=== PATIENT | female | born 1930 | race Caucasian/White ===

== ENCOUNTER 2016-08-16 15:17 | Inpatient (IN) ==
[2016-08-16 15:35] LABS: MANUAL DIFF NEEDED? NO
[2016-08-16] MEDS ORDERED: CARDIZEM IV ONE ×2 (15:39→17:08)
[2016-08-16 15:42] LABS: BASO% 0.3 % (0.0-0.8); EOS# 0.05 X1000 (0.0-0.7); EOS% 0.9 % (0.0-10.0); HEMATOCRIT 47.2 % (37.0-47.0); HEMOGLOBIN 15.2 g/dL (12.0-16.0); IMM GRAN# 0.02 X1000 (0.0-0.04); IMM GRAN% 0.3 % (0.0-0.5); LYMPH# 0.73 X1000 (1.2-3.4); LYMPH% 12.7 % (20.5-51.1); MCH 30.9 PG (27-31); MCHC 32.2 g/dL (33-37); MCV 95.9 FL (81-99); MONO# 0.43 X1000 (0.11-0.59); MONO% 7.5 % (1.7-9.3); NEUT% 78.3 % (42.2-75.2); PLT 183 X1000 (130-400); RBC 4.92 XMIL (4.2-5.4)
--- NOTE | 2016-08-16 15:42 | EKG Report ---
Test Performed on : 08/16/2016 3:40:16 PM Test Reason : CHEST PAIN Blood Pressure : / mmHG Vent. Rate : 108 BPM Atrial Rate : 108 BPM P-R Int : 158 ms QRS Dur : 086 ms QT Int : 352 ms P-R-T Axes : 063 -54 050 degrees QTc Int : 471 ms Sinus tachycardia. Left anterior fascicular block Voltage criteria for left ventricular hypertrophy Abnormal ECG When compared with ECG of 01-JAN-2016 00:46, No significant change was found Unconfirmed Result
[2016-08-16 16:10] LABS: INR 0.93 (0.86-1.15); PROTIME 12.8 Seconds (12.1-15.5)
[2016-08-16 16:11] LABS: PTT PL 26.6 Seconds (22.6-43.9)
[2016-08-16 16:12] LABS: AGAP 16; ALBUMIN 4.2 g/dL (3.5-5.0); ALKALINE PHOSPHATASE 354 U/L (32-104); BUN 10 mg/dL (8-22); CALCIUM 9.8 mg/dL (8.8-10.2); CHLORIDE 102 mmol/L (98-107); CK PROFILE 23 U/L (24-173); COSMO 286; GOT 45 U/L (10-30); GPT 275 U/L (10-36); MAGNESIUM 2.2 mg/dL (1.5-2.7); POTASSIUM 3.9 mmol/L (3.5-5.1); SODIUM 143 mmol/L (136-145); TCO2 25 mmol/L (25-35); TOTAL PROTEIN 7.4 g/dL (6.3-8.3)
--- NOTE | 2016-08-16 16:47 | Diag Imaging Result Doc PS360 ---
EXAM: CHEST-2 VIEWS HISTORY: CP TECHNIQUE: COMPARISON: 07/07/2015 FINDINGS: The lungs are well expanded. The heart is not enlarged. The vessels are not distended. There are no infiltrates. No pleural effusions. There is a small to moderate sized hiatal hernia. There are several calcified left hilar lymph nodes. Old left rib fractures. No free air beneath the diaphragm. IMPRESSION: 1.Hiatal hernia 2.Emphysema 3.Calcified left hilar lymph nodes Electronically signed by Ayad Jackson 08/16/2016 4:44 PM
[2016-08-16 16:56] LABS: BILIRUBIN URINE NEGATIVE (NEGATIVE); BLOOD URINE 2+ (NEGATIVE); CLARITY CLEAR (CLEAR); COLOR YELLOW; GLUCOSE URINE NEGATIVE (NEGATIVE); LEUKOCYTES URINE TRACE (NEGATIVE); NITRITE URINE NEGATIVE (NEGATIVE); PH URINE 6.5; PROTEIN URINE NEGATIVE (NEGATIVE); URINE SOURCE CLEAN CATCH; UROBILINOGEN URINE NORMAL
[2016-08-16 16:58] LABS: URINE CULTURE PL NEEDED? YES; URINE EPITHELIAL CELLS <10 /HPF (<10); URINE RBC <10 /HPF (<10); URINE WBC <10 /HPF (<10)
[2016-08-16] MEDS ORDERED: CARDIZEM ONE (17:09)
--- NOTE | 2016-08-16 17:39 | EKG Report ---
Test Performed on : 08/16/2016 5:36:11 PM Test Reason : chest pain second set Blood Pressure : / mmHG Vent. Rate : 102 BPM Atrial Rate : 156 BPM P-R Int : 168 ms QRS Dur : 090 ms QT Int : 374 ms P-R-T Axes : 081 -49 013 degrees QTc Int : 487 ms Sinus tachycardia. with frequent premature ventricular complexes. Pulmonary disease pattern Left anterior fascicular block Voltage criteria for left ventricular hypertrophy Abnormal ECG When compared with ECG of 16-AUG-2016 15:40, (Unconfirmed) premature ventricular complexes. are now present T wave inversion now evident in Inferior leads Unconfirmed Result
[2016-08-16] MEDS ORDERED: LASIX IV ONE (18:25)
[2016-08-16] MEDS ORDERED: LASIX ONE (18:37)
[2016-08-16] MEDS ORDERED: ZOFRAN IV PRN (19:11)
[2016-08-16] MEDS ORDERED: NS 1,000 ML IV ONE (19:11)
[2016-08-16] MEDS ORDERED: MORPHINE IV PRN (19:11)
[2016-08-16] MEDS: LASIX IV SCH (21:35)
[2016-08-16] MEDS ORDERED: ADVAIR 250/50 DISKUS INH PRN (23:11)
[2016-08-16] MEDS ORDERED: DESYREL PO PRN (23:17)
[2016-08-17] MEDS: LYRICA PO SCH ×3 (00:25→20:50)
[2016-08-17] MEDS: SYNTHROID PO SCH (06:42)
[2016-08-17] MEDS ORDERED: NORCO-7.5 PO SCH (09:00)
[2016-08-17] MEDS: LASIX IV SCH (09:00)
[2016-08-17] MEDS ORDERED: PROTONIX PO SCH (09:00)
[2016-08-17] MEDS ORDERED: PATIENT'S OWN MED PRN (09:00)
[2016-08-17] MEDS: COLACE PO SCH ×2 (09:02→20:52)
[2016-08-17] MEDS: ZYLOPRIM PO SCH (09:02)
[2016-08-17] MEDS: CYMBALTA PO SCH (09:02)
[2016-08-17] MEDS: OCUVITE LUTEIN & ZEAXANTHIN PO SCH (09:03)
[2016-08-17] MEDS: VITAMIN B-12 PO SCH (09:03)
[2016-08-17] MEDS: FISH OIL CONCENTRATE PO SCH (09:04)
--- NOTE | 2016-08-17 12:00 | GRADED EXERCISE REPORT ---
DATE: 08/17/2016 INDICATION: Chest pain. EKG PORTION OF LEXISCAN: Preprocedure EKG resting heart rate was 122 and irregular, 154/71 blood pressure. EKG resting showed PVCs, specific ST changes. It was a sinus tachycardia, though. After infusion of Lexiscan, she developed some ectopy. It looked like a pattern of bigeminy or frequent PVC's, sometimes with bigeminy. Heart rate at the fastest was in the 130s. Peak blood pressure was 149/87 with a peak heart rate of 166. Incidentally 122% of predicted, but the patient developed nausea during the procedure and chest pain. She said worse than her chest pain she had the night before. She was given 4 mg of Zofran. We monitored her for about 7 to 8 minutes, but she was still having a burning sensation. So, she was given some aminophylline to help reverse the affects of the Lexiscan. I did not appreciate any significant ST changes on the EKG portion; however, she did develop a significant ventricular bigeminy and frequent PVCs, but she had been doing that prior to the study. The study was felt to be clinically positive, but electrically negative, although she did have frequent ectopy and even bigeminy. Myocardial perfusion imaging reported separately. cc: Clark Garrett MD
[2016-08-17] MEDS: LOPRESSOR PO SCH ×2 (14:50→20:50)
[2016-08-17] MEDS ORDERED: LEXISCAN ONE (16:09)
[2016-08-17] MEDS ORDERED: AMINOPHYLLINE ONE (16:09)
[2016-08-17] MEDS ORDERED: ZOFRAN ONE (16:09)
--- NOTE | 2016-08-17 16:31 | HISTORY AND PHYSICAL ---
CHIEF COMPLAINT: Chest pain. HISTORY OF PRESENT ILLNESS: This is an 86-year-old female who presented to the emergency room complaining of chest pain that started earlier in the day. She states that the feeling started feeling like her heart was beating harder than normal. She developed a pressure type pain. It was precordial shortly after this. She does state that she is coming off of morphine and [place] as she has a clonidine pain pump. She denies any other symptoms or symptoms of withdrawal. She states she has never had this sensation before. Troponins were negative. EKG revealed a sinus tach at a rate of 108. With repeat EKG sinus tachycardia with PVCs at a rate of 102. She was given Cardizem 30 mg IV, Lasix 20 and admitted for further evaluation and treatment. PAST MEDICAL HISTORY: COPD, sleep apnea, chronic back pain, hypothyroidism, gastroesophageal reflux disease, atrial fibrillation. PAST SURGICAL HISTORY: Pain pump, cholecystectomy, hysterectomy and right total knee. SOCIAL HISTORY: She lives with her . She denies alcohol, tobacco, or illicit drug use. ALLERGIES: Are multiple. Please see the computer for list of her allergies. HOME MEDICATIONS: Levothyroxine 112 mcg daily. Ocuvite 1 daily. Protonix 40 mg daily. Cymbalta 60 mg daily. Colace 100 b.i.d. Allopurinol 300 q.a.m. Clonidine infusion per pump. Vitamin B12 1000 sublingual every a.m. Estrace 1 g every other day. Advair 250/50 daily p.r.n. [place] 7.5 daily. Lyrica 75 mg b.i.d. Fish oil daily. REVIEW OF SYSTEMS: A 14 point review of systems discussed with patient with pertinent positives being chronic back pain as well as those stated in the HPI. She denied any dizziness, syncope, shortness of breath, cough, fever, chills, any hematuria, dysuria, frequency or urgency. PHYSICAL EXAM: This is an 86-year-old female who is lying in the bed, in no distress. VITAL SIGNS: Blood pressure is 127/52 with a heart rate of 59, respirations are 16, temperature is 98.1 degrees with oxygen saturations of 96-98% on room air. CARDIOVASCULAR: Regular rate and rhythm. S1 and S2 appreciated. PULMONARY: Breath sounds are clear with no increased work of breathing noted. GASTROINTESTINAL: Abdomen is soft, nontender, nondistended. Bowel sounds in all 4 quadrants. EXTREMITIES: No clubbing, cyanosis, or edema. Calves are nontender. Pulses are palpable x4. NEUROLOGIC: She is alert and oriented x3. DIAGNOSTICS: WBC is 5.7 with hemoglobin 15.2, hematocrit 47.2, and platelets of 183,000. Sodium is 143, potassium 3.9, BUN 10, creatinine 0.7 with a glucose of 137. Troponins are negative on multiple occasions. TSH is 7.42. Urine culture is pending. ASSESSMENT AND PLAN: 1. Chest pain. The patient has remained NPO. She will have a nuclear stress test today. Further management will be per the results of the scan. 2. Hypertension. We will identify her home medications and continue. 3. Hypothyroidism. Her TSH is elevated. the pt states she has not been taking medication as prescribed. will give home dose and monitor. 4. Gastroesophageal reflux disease. 5. History of atrial fibrillation, aware. 6. COPD. We will identify her home medications and continue as appropriate. Further treatments pending hospital course. Dictated by SP Abraham for Clark Garrett MD cc: SP Abraham MD pt examined, agree with above, stress test today [facility] MTD[facility]
[2016-08-17] MEDS: TEARISOL OPH SOLUTION BOTH EYES SCH ×2 (17:33→21:30)
[2016-08-17] MEDS: NORCO-7.5 PO SCH (20:51)
[2016-08-18] MEDS: LOPRESSOR PO SCH ×2 (01:51→07:58)
[2016-08-18] MEDS: SYNTHROID PO SCH (06:20)
[2016-08-18] MEDS ORDERED: PROTONIX PO SCH (07:00)
[2016-08-18 07:04] LABS: HEMATOCRIT 48.4 % (37.0-47.0); HEMOGLOBIN 15.3 g/dL (12.0-16.0); MCH 30.3 PG (27-31); MCHC 31.6 g/dL (33-37); MCV 95.8 FL (81-99); MPV 12.1 FL (7.4-10.4); RBC 5.05 XMIL (4.2-5.4)
[2016-08-18 07:18] VITALS: BP 124/55
[2016-08-18 07:33] LABS: AGAP 15; BUN 15 mg/dL (8-22); CHLORIDE 102 mmol/L (98-107); COSMO 283; MAGNESIUM 2.4 mg/dL (1.5-2.7); POTASSIUM 4.1 mmol/L (3.5-5.1); SODIUM 142 mmol/L (136-145); TCO2 25 mmol/L (25-35)
[2016-08-18] MEDS: COLACE PO SCH (07:59)
[2016-08-18] MEDS: NORCO-7.5 PO SCH (08:00)
[2016-08-18] MEDS: OCUVITE LUTEIN & ZEAXANTHIN PO SCH (08:01)
[2016-08-18] MEDS: LYRICA PO SCH (08:01)
[2016-08-18] MEDS: VITAMIN B-12 PO SCH (08:01)
[2016-08-18] MEDS: FISH OIL CONCENTRATE PO SCH (08:01)
[2016-08-18] MEDS: CYMBALTA PO SCH (08:01)
[2016-08-18] MEDS: ZYLOPRIM PO SCH (08:01)
[2016-08-18] MEDS: TEARISOL OPH SOLUTION BOTH EYES SCH ×2 (08:25→13:10)
[2016-08-18] MEDS ORDERED: ESTRACE PO SCH (09:00)
--- NOTE | 2016-08-18 10:15 | Diag Imaging Result Document ---
PROCEDURE NAME: MYOCARDIAL PERF SCAN, STR/REST - 08/17/2016 DATE OF STUDY: 08/17/2016. INDICATION FOR THE PROCEDURE: Congestive heart failure. PROCEDURES PERFORMED: 1. Lexiscan stress. 2. Stress/rest myocardial perfusion imaging. PROCEDURE IN DETAIL: Ms. Smith was brought to the nuclear laboratory in a fasting state. She initially had a resting study with injection of 10.7 mCi of technetium-99m sestamibi with the usual imaging protocol utilized. She subsequently had a Lexiscan stress. At peak stress, was injected with 29.7 mCi of technetium-99m sestamibi with the usual imaging protocol utilized. FINDINGS: 1. Lexiscan stress results dictated separately. 2. There does appear to be evidence of increased tracer uptake on resident stress images located in the left forearm. This is likely contamination from tracer. 3. TID ratio is normal at 0.87. 4. Perfusion imaging demonstrates a very small size, mild intensity, fixed defect at the apex. This is predominantly suggestive of apical thinning artifact. Wall motion appears to be normal. 5. Normal ejection fraction of 59%. End-diastolic volume 35, end-systolic volume of 14, and normal wall motion. cc: MD Clark Garcia MD
--- NOTE | 2016-08-18 10:56 | CONSULTATION ---
DATE OF CONSULTATION: 08/18/2016 REASON FOR CONSULTATION: Palpitations and chest discomfort. A 86-year-old lady, came to the emergency room with complaints of having palpitations, which has been going on for some time and she describes them as thumping. Whenever that happens, she has some chest discomfort. She has chronic pain. Has scoliosis and is undergoing treatment with a clonidine pump. Most of her chest pain were associated with the palpitations. There was no radiation to the back or down the arms. When she came in, she was noted to have multiple PACs. Prior to this, no significant cardiac disease. There is no dizziness. There is no syncope. PAST MEDICAL HISTORY: COPD, sleep apnea, chronic back pain, scoliosis, hypothyroidism, gastroesophageal reflux disease. Distant history of atrial fibrillation or palpitations. PAST SURGICAL HISTORY: Pain pump placement, cholecystectomy, hysterectomy, right total knee. SOCIAL HISTORY: She lives with her . No alcohol or tobacco abuse. ALLERGIES: Multiple allergies, as listed in the computer. HOME MEDICATIONS: Levothyroxine 112, Ocuvite, Protonix, Cymbalta, Colace, allopurinol, clonidine infusion, B12, Estrace, Advair, and Lyrica. REVIEW OF SYSTEMS: GI System: There is no nausea, vomiting, or diarrhea. Central nervous system: No focal weakness to suggest a CVA or TIA. Genitourinary: There is no dysuria or hematuria. However, she was recently treated with antibiotics for urinary tract infection. PHYSICAL EXAMINATION: Vital Signs: Blood pressure was 127/52. Cardiovascular System: Normal jugular venous pressure. There no thyromegaly. No carotid bruit. First and second heart sounds were heard. Respiratory System: Normal air entry. There is no crepitations or rhonchi. Abdomen: Soft, nontender. There was no guarding or rigidity. Bowel sounds were heard. Central nervous system: Alert, was moving all 4 extremities. Detailed central nervous system examination not performed. Chest x-ray revealed hiatal hernia, emphysema; otherwise, no evidence of heart failure. LABORATORY EXAMINATION: Cardiac enzymes were negative. ProBNP was elevated. She had abnormal liver function tests. Magnesium and potassium were normal. Total bilirubin 0.7, AST 45, ALT 275, alkaline phosphatase 354. ASSESSMENT AND PLAN: Ms. Farheen Smith is an 86-year-old, lady, who noted palpitations associated with the palpitations. She had chest discomfort. At time of my examination, there was no chest pain. Cardiac enzymes were negative. Cardiolite stress test did not reveal any evidence of ischemia. Ejection fraction by gated SPECT was 55%. She had an echocardiogram done, which will have it read today. From a cardiac standpoint, would manage her medically. She has multiple other problems including chronic pain. Her telemetry revealed PACs. Electrolytes are normal. She was recently treated with urinary tract infection. Would recommend follow up for that. Continue her medications for hypothyroidism and depression, which she has had. In addition, she has hiatal hernia, which could be the reason for her symptoms. Thank you for the consult. We will follow in the hospital. cc: MD Clark Pérez MD
--- NOTE | 2016-08-18 18:50 | ECHO REPORT ---
ORDER DATE: 08/18/2016 INTERPRETING PHYSICIAN: Dr. Woodson REQUESTING PHYSICIAN: CLINICAL INDICATIONS: This is an 86-year-old female with chest pain, tachycardia, arrhythmia. M-MODE MEASUREMENTS: Right ventricle: 2.3 cm. Left ventricle end diastole: 3.5 cm. Left ventricle end systole: 2.9 cm. Posterior wall: 1.3 cm. Interventricular septum: 1.3 cm. Left atrium: 2.8 cm. Aortic root: 3.5 cm. SUMMARY OF 2-DIMENSIONAL IMAGING: The left ventricular function is normal. Ejection fraction 58%. The chamber is not dilated. Mild degree of concentric LVH. The right ventricle is normal. The aortic valve looks normal. Color flow mapping unremarkable. The mitral valve shows a mild degree of regurgitation. Pulse wave Doppler of mitral inflow shows reversal of the E and the A wave. The ratio is 0.38. Tissue Doppler of septal and lateral mitral annulus is decreased, averaging 3.5 cm per second. That indicates impaired left ventricular relaxation. Pulmonary venous flow has normal pattern. The tricuspid valve shows a mild degree of regurgitation. The inferior vena cava is at the upper limits of normal. Pulmonary pressure estimated to be in the range of 36-41 mmHg. The pulmonic valve looks normal. Color flow mapping unremarkable. There is no pericardial effusion, masses or thrombus. The atrial do not appear to be dilated. IMPRESSION: In summary, this study shows: 1. Normal left ventricular systolic function. Ejection fraction 58% with mild degree of concentric LVH. 2. Borderline pulmonary hypertension in the range of 36-41 mmHg. 3. Impaired left ventricular relaxation. 4. No evidence of any significant valvular abnormality. Clinical correlation recommended. cc: MD Clark Medina MD
--- NOTE | 2016-08-18 20:19 | DISCHARGE SUMMARY ---
ADMISSION DATE: 08/17/2016 DISCHARGE DATE: 08/18/2016 DIAGNOSES: 1. Chest pain 2. Hypertension. 3. Hypothyroid. 4. Gastroesophageal reflux disease. 5. History of atrial fibrillation. 6. Chronic obstructive pulmonary disease. 7. Chronic back pain. DIAGNOSTICS: 1. 08/16/2016: Chest x-ray revealed hiatal hernia, emphysema. 2. Lexiscan myocardial perfusion imaging revealed ejection fraction of 59% with normal wall motion, with a very small mild intensity fixed defect at the apex, predominantly suggestive of apical thinning artifact. Wall motion is normal. Gated nuclear stress part was clinically positive with the patient having nausea and chest pain. She did have frequent bigeminy and frequent PVCs during the stress portion of the test. This test was electrically negative. 3. Consultation: Dr. Ernst in Cardiology. HOSPITAL COURSE: Ms. Smith presented to the emergency room complaining of chest pain that she described as a pressure type pain being a 4-5/10 at its worst and 0 at its least. She complained of palpitations stating that her heart felt like it was beating harder than normal and she described it as a thumping sensation. Chest discomfort did accompany this thumping sensation. She does have a history of chronic back pain for which she is on a clonidine pump as well as p.r.n. medications. We did continue these. As stated above, she did have a negative Lexiscan. Cardiac enzymes were negative on multiple occasions. She had no further chest pain after leaving the emergency room. She had a prior urinary tract infection on arrival to the emergency room. Yesterday was her last day of p.o. antibiotics. She denies any voiding symptoms. In fact she had a urine culture that revealed no growth. DISCHARGE PHYSICAL EXAMINATION: Cardiovascular: Regular rate and rhythm. S1, S2 appreciated. Pulmonary: Breath sounds are clear. No increased work of breathing noted. Gastrointestinal: Abdomen is soft, nontender, nondistended. Bowel sounds in all 4 quadrants. Back: No CVAT. No spine tenderness. Musculoskeletal: Good range of motion of joints. Extremities: No clubbing, cyanosis, or edema. Pulses are palpable x4. Calves are nontender. Neurologic: She is alert and oriented. DISCHARGE VITAL SIGNS: Blood pressure is 124/55, heart rate 77, respirations 18, temperature 98.4 degrees with room air saturations 98%. DISCHARGE ACTIVITY: As tolerated. DISCHARGE DIET: Healthy heart. DISCHARGE MEDICATIONS: 1. Synthroid 112 mcg daily. 2. Ocuvite 1 daily. 3. Protonix 40 mg daily. 4. Cymbalta 60 mg daily. 5. Colace 100 mg b.i.d. 6. Allopurinol 300 q. a.m. 7. Clonidine infusion per pump. 8. Vitamin B12, 1000 mcg sublingual every morning. 9. Estrace 1 g every other day. 10. Advair 250/50, 1 inhalation daily. 11. [place] 7.5/325, 1-1/2 every morning. 12. Lyrica 75 b.i.d. 13. Toprol-XL 25 mg daily. FOLLOWUP: 1. She needs to follow up with Dr. Ernst in Cardiology in the next 2-4 weeks and her primary care physician Dr. Fraga in the next 1-2 weeks. 2. She has been instructed to call to be seen sooner if she has any recurrence of chest pain, shortness of breath, palpitations or any questions or concerns that she may have. CONDITION AT DISCHARGE: She is being discharged home in stable condition with family members. TIME SPENT: This is a greater than 30 minute discharge from 12:00 to 12:35. Dictated by SP Abraham for Clark Garrett MD cc: SP Abraham MD
--- NOTE | 2016-09-01 17:14 | PROVIDER DOCUMENTATION ---
This chart was entered by Allan Barajas Scribe, acting as scribe for Brando Armenta MD. HPI-Chest Pain <GauriDhruv - Last Filed: 08/16/16 19:18> - General Source: patient, family, EMS - History of Present Illness-CP Location: reports: central Chest Pain Radiation: reports: no radiation Quality of Pain: reports: aching Severity in ED: mild Onset/Duration: 24 hours ago Timing: still present Similar Symptoms Previously?: No <Brando Armenta I - Last Filed: 09/01/16 17:14> - General Chief Complaint: Chest Pain Stated Complaint: chest pain Time Seen by Provider: 08/16/16 15:33 Allergies/Adverse Reactions: Patient Allergies Allergy/AdvReac Type Severity Reaction Status Date / Time albuterol Allergy Severe SHORTNESS Verified 08/16/16 15:42 OF BREATH azithromycin [From Zithromax] Allergy Severe ANAPHYLAXIS Verified 08/16/16 15:42 butorphanol tartrate * Allergy Severe UNRESPONSIV Verified 08/16/16 15:42 [From Stadol] E hyoscyamine sulfate * Allergy Severe ANAPHYLAXIS Verified 08/16/16 15:42 [From Levsin] meloxicam [From Mobic] Allergy Severe SWELLING Verified 08/16/16 15:42 AND BURNING TO MOUTH AND THROAT mirtazapine [From Remeron] Allergy Severe ITCHING Verified 08/16/16 15:42 AND BURNING TO BUE AND BLE ondansetron HCl * Allergy Severe DIFFICULTY Verified 08/16/16 15:42 [From Zofran (as BREATHING hydrochloride)] AND CONSTIPATION soap [From Betadine] Allergy Severe WEEPING Verified 08/16/16 15:42 BLISTERS sulfamethoxazole Allergy Severe ANAPHYLAXIS Verified 08/16/16 15:42 [From Bactrim] tramadol HCl * [From Ultram] Allergy Severe DIFFICULTY Verified 08/16/16 15:42 BREATHING trimethoprim [From Bactrim] Allergy Severe ANAPHYLAXIS Verified 08/16/16 15:42 vitamin A [From Retinol] Allergy Severe HIVES Verified 08/16/16 15:42 econazole Allergy Intermediate RASH THAT Verified 08/16/16 15:42 PEELS OFF SKIN Penicillins Allergy Intermediate HIVES Verified 08/16/16 15:42 soap * [From Betadine] Allergy Intermediate Blisters Unverified 08/16/16 15:42 aloe polysaccharides no.1 Allergy Mild RASH Verified 08/16/16 15:42 [From Aloquin] dirithromycin [From Dynabac] Allergy Mild RASH, Verified 08/16/16 15:42 SWOLLEN THROAT iodoquinol [From Aloquin] Allergy Mild RASH Verified 08/16/16 15:42 venlafaxine HCl * Allergy Mild RASH Verified 08/16/16 15:42 [From Effexor] tapentadol HCl * Allergy Unknown HEADACHE Verified 08/16/16 15:42 [From Nucynta] amoxicillin [Amoxicillin] Allergy DIARRHEA Verified 08/16/16 15:42 amoxicillin trihydrate * Allergy DIARRHEA Verified 08/16/16 15:24 [From Augmentin] aripiprazole [From Abilify] Allergy Unknown Verified 08/16/16 15:42 celecoxib [From Celebrex] Allergy SWELLING Verified 08/16/16 15:42 chlorpheniramine Allergy nervous Verified 08/16/16 15:42 [From Comhist] chlorpheniramine maleate * Allergy nervous Verified 08/16/16 15:24 [From Comhist] dexlansoprazole Allergy ABDOMINAL Verified 08/16/16 15:42 [From Dexilant] PAIN naproxen sodium * Allergy DIARRHEA Verified 08/16/16 15:42 [From Aleve] oxybutynin chloride * Allergy NAUSEA Verified 08/16/16 15:42 [From Ditropan] phenylephrine HCl * Allergy nervous Verified 08/16/16 15:42 [From Comhist] phenyltoloxamine citrate * Allergy nervous Verified 08/16/16 15:42 [From Comhist] polyethylene glycol Allergy NAUSEA Verified 08/16/16 15:24 [From Colyte] polyethylene glycol 3350 * Allergy NAUSEA Verified 08/16/16 15:42 [From Colyte] potassium chloride * Allergy NAUSEA Verified 08/16/16 15:42 [From Colyte] potassium clavulanate * Allergy DIARRHEA Verified 08/16/16 15:42 [From Augmentin] rabeprazole sodium * Allergy NAUSEA Verified 08/16/16 15:42 [From Aciphex] sodium [From Colyte] Allergy NAUSEA Verified 08/16/16 15:24 sodium bicarbonate * Allergy NAUSEA Verified 08/16/16 15:42 [From Colyte] sodium chloride [From Colyte] Allergy NAUSEA Verified 08/16/16 15:42 sodium sulfate * Allergy NAUSEA Verified 08/16/16 15:42 [From Colyte] sodium sulfate anhydrous * Allergy NAUSEA Verified 08/16/16 15:42 [From Colyte] alprazolam [From Xanax] AdvReac Severe SORE Verified 08/16/16 15:42 TONGUE WITH ULCERATIONS Antihistamines - Piperidine AdvReac Severe AGITATION, Verified 08/16/16 15:42 INSOMNIA benzonatate AdvReac Severe UNABLE TO Verified 08/16/16 15:42 [From Emeterio Gold] WALK, "FEELS LIKE IM DRUNK" brompheniramine maleate * AdvReac Severe DIARRHEA Verified 08/16/16 15:42 [From Lodrane D] brompheniramine tannate * AdvReac Severe DIARRHEA Verified 08/16/16 15:42 [From Lodrane D] bupropion HCl * AdvReac Severe NAUSEA AND Verified 08/16/16 15:42 [From Wellbutrin] DIARRHEA cefaclor [From Ceclor] AdvReac Severe RED RAW Verified 08/16/16 15:42 TONGUE cefuroxime axetil * AdvReac Severe DIARRHEA Verified 08/16/16 15:42 [From Ceftin] chlordiazepoxide AdvReac Severe ANXIETY Verified 08/16/16 15:42 [From Librax (with clidinium)] chlorpromazine HCl * AdvReac Severe DECREASED Verified 08/16/16 15:42 [From Thorazine] LOC citalopram hydrobromide * AdvReac Severe NAUSEA AND Verified 08/16/16 15:42 [From Celexa] DEPRESSION clarithromycin AdvReac Severe RICHARDS, Verified 08/16/16 15:42 DIARRHEA, SINUS INFECTION clidinium bromide * AdvReac Severe ANXIETY Verified 08/16/16 15:42 [From Librax (with clidinium)] clorazepate dipotassium AdvReac Severe GERD Verified 08/16/16 15:42 [From Tranxene T-Tab] codeine phosphate * AdvReac Severe ABD PAIN Verified 08/16/16 15:42 [From Tylenol-Codeine #3] AND BLOATING divalproex sodium AdvReac Severe DIARRHEA Verified 08/16/16 15:42 [From Depakote] doxepin HCl * [From Sinequan] AdvReac Severe DIARRHEA Verified 08/16/16 15:42 doxycycline calcium * AdvReac Severe NAUSEA Verified 08/16/16 15:42 [From Vibramycin] doxycycline hyclate * AdvReac Severe NAUSEA Verified 08/16/16 15:42 [From Vibramycin] doxycycline monohydrate * AdvReac Severe NAUSEA Verified 08/16/16 15:42 [From Vibramycin] duloxetine HCl * AdvReac Severe WEAKNESS Verified 08/16/16 15:42 [From Cymbalta] erythromycin base AdvReac Severe DIARRHEA Verified 08/16/16 15:42 [From E-Mycin] fentanyl [From Duragesic] AdvReac Severe ANXIETY, Verified 08/16/16 15:42 CHILLS, DEPRESSION , BRADYCARDIA fluoxetine HCl * AdvReac Severe ESOPHAGEAL Verified 08/16/16 15:42 [From Prozac] IRRITATION fluphenazine enanthate * AdvReac Severe ANXIETY Verified 08/16/16 15:42 [From Prolixin] fluphenazine HCl * AdvReac Severe ANXIETY Verified 08/16/16 15:42 [From Prolixin] hydrocodone bitartrate * AdvReac Severe BURNING Verified 08/16/16 15:42 [From Zydone] PAIN TO TONGUE hydroxyzine HCl * AdvReac Severe ABD PAIN Verified 08/16/16 15:42 [From Vistaril] AND DIARRHEA hydroxyzine pamoate * AdvReac Severe ABD PAIN Verified 08/16/16 15:42 [From Vistaril] AND DIARRHEA ibuprofen [From Motrin] AdvReac Severe GERD Verified 08/16/16 15:42 imipramine HCl * AdvReac Severe NAUSEA Verified 08/16/16 15:42 [From Tofranil] indomethacin [From Indocin] AdvReac Severe NAUSEA Verified 08/16/16 15:42 indomethacin sodium * AdvReac Severe NAUSEA Verified 08/16/16 15:42 [From Indocin] lamotrigine [From Lamictal] AdvReac Severe esophageal Verified 08/16/16 15:42 irritation lansoprazole [From Prevacid] AdvReac Severe BREAST PAIN Verified 08/16/16 15:42 levomefolate calcium * AdvReac Severe GERD Verified 08/16/16 15:42 [From Metanx] lithium AdvReac Severe DIARRHEA Verified 08/16/16 15:42 lithium carbonate * AdvReac Severe DIARRHEA Verified 08/16/16 15:42 [From Eskalith] magnesium citrate AdvReac Severe IRRITATES Verified 08/16/16 15:42 PUD mecobalamin [From Metanx] AdvReac Severe GERD Verified 08/16/16 15:42 methadone AdvReac Severe SUICIDAL Verified 08/16/16 15:42 IDEATIONS milnacipran HCl * AdvReac Severe CONFUSION Verified 08/16/16 15:42 [From Savella] AND DIZZINESS montelukast sodium * AdvReac Severe NAUSEA Verified 08/16/16 15:42 [From Singulair] morphine sulfate * AdvReac Severe MOUTH Verified 08/16/16 15:42 [From MS Contin] ULCERS nabumetone [From Relafen] AdvReac Severe ABD PAIN, Verified 08/16/16 15:42 PUD nalidixic acid [From NegGram] AdvReac Severe NAUSEA, Verified 08/16/16 15:42 WEAKNESS, CONFUSION naloxone HCl * [From Narcan] AdvReac Severe UNRESPONSIV Verified 08/16/16 15:42 ENESS naproxen [From Naprosyn] AdvReac Severe BLISTERS, Verified 08/16/16 15:42 DIARRHEA, BLOATING nefazodone HCl * AdvReac Severe DIARRHEA Verified 08/16/16 15:42 [From Serzone] omeprazole [From Prilosec] AdvReac Severe WEAKNESS Verified 08/16/16 15:42 omeprazole magnesium * AdvReac Severe WEAKNESS Verified 08/16/16 15:42 [From Prilosec] paroxetine HCl * [From Paxil] AdvReac Severe ANXIETY Verified 08/16/16 15:42 pentazocine lactate * AdvReac Severe TACHYCARDIA, Verified 08/16/16 15:42 [From Talwin] HYPERVENTILATION piroxicam [From Feldene] AdvReac Severe ABD PAIN Verified 08/16/16 15:42 promethazine HCl * AdvReac Severe DIARRHEA Verified 08/16/16 15:42 [From Phenergan] propoxyphene AdvReac Severe INSOMNIA, Verified 08/16/16 15:42 DIFFICULTY SWALLOWING propranolol HCl * AdvReac Severe HYPOTENSION Verified 08/16/16 15:42 [From Inderal LA] pseudoephedrine HCl * AdvReac Severe DIARRHEA Verified 08/16/16 15:42 [From Lodrane D] pseudoephedrine tannate * AdvReac Severe DIARRHEA Verified 08/16/16 15:42 [From Lodrane D] pyridoxal phosphate * AdvReac Severe GERD Verified 08/16/16 15:42 [From Metanx] rimantadine HCl * AdvReac Severe NAUSEA Verified 08/16/16 15:42 [From Flumadine] rofecoxib [From Vioxx] AdvReac Severe DIARRHEA Verified 08/16/16 15:42 sertraline HCl * AdvReac Severe N/V/D Verified 08/16/16 15:42 [From Zoloft] sodium phosphate,dibasic * AdvReac Severe CONNER TO Verified 08/16/16 15:42 [From Fleet Enema] SKIN AROUND ANUS sodium phosphate,monobasic * AdvReac Severe CONNER TO Verified 08/16/16 15:42 [From Fleet Enema] SKIN AROUND ANUS tegaserod hydrogen maleate * AdvReac Severe DIARRHEA Verified 08/16/16 15:42 [From Zelnorm] tetracycline AdvReac Severe DIARRHEA Verified 08/16/16 15:42 tizanidine HCl * AdvReac Severe EYE Verified 08/16/16 15:42 [From Zanaflex] IRRITATION, DIFFICULTY AMBULATING trimethobenzamide HCl * AdvReac Severe MUSCLE Verified 08/16/16 15:42 [From Tigan] TWITCHING valdecoxib [From Bextra] AdvReac Severe AGITATION Verified 08/16/16 15:42 vitamin E (d-alpha AdvReac Severe DIARRHEA Verified 08/16/16 15:42 tocopherol) [vitamin E] adhesive tape AdvReac Intermediate RASH Verified 08/16/16 15:42 benztropine mesylate * AdvReac Intermediate ANXIETY Verified 08/16/16 15:42 [From Cogentin] glucose oxidase * AdvReac Intermediate MOUTH PEELS Verified 08/16/16 15:42 [From Biotene Dry Mouth] lactoperoxidase * AdvReac Intermediate MOUTH PEELS Verified 08/16/16 15:42 [From Biotene Dry Mouth] methylprednisolone AdvReac Intermediate INSOMNIA Verified 08/16/16 15:42 potassium thiocyanate * AdvReac Intermediate MOUTH PEELS Verified 08/16/16 15:42 [From Biotene Dry Mouth] povidone-iodine AdvReac Intermediate Blisters Verified 08/16/16 15:42 [From Betadine] cephalexin monohydrate * AdvReac Mild VOMITING Verified 08/16/16 15:42 [From Keflex] chlordiazepoxide HCl * AdvReac Mild NAUSEA Verified 08/16/16 15:42 [From Librium] diclofenac sodium * AdvReac Mild CONSTIPATIO Verified 08/16/16 15:42 [From Arthrotec] N misoprostol [From Arthrotec] AdvReac Mild CONSTIPATIO Verified 08/16/16 15:42 N Sulfa (Sulfonamide AdvReac Unknown ANAPHYLAXIS Verified 08/16/16 15:42 Antibiotics) ceftriaxone sodium * AdvReac ABDOMINAL Verified 08/16/16 15:42 [From Rocephin] PAIN Home Medications: Home Medication List Medication Instructions Recorded Confirmed Last Taken Type Allopurinol 300 mg PO QAM 04/26/15 08/16/16 08/16/16 History Bisacodyl [Dulcolax] 5 mg PO DAILY PRN PRN 04/26/15 01/11/16 01/11/16 07:00 History Clonidine HCl/Pf [Clonidine 5,000 60 mg PO TID 04/26/15 08/16/16 08/16/16 History Mcg/10 ml Vial] Cyanocobalamin (Vitamin B-12) 1,000 mcg SL QAM 04/26/15 08/16/16 08/16/16 History [Vitamin B-12] Estradiol [Estrace] 1 gm PO EVERY OTHER DAY 04/26/15 08/16/16 01/11/16 07:00 History Fluticasone/Salmeterol [Advair 1 each IH DAILY PRN PRN 04/26/15 08/16/16 History 250-50 Diskus] Levothyroxine [Synthroid] 112 microgm PO QAM 04/26/15 08/16/16 08/16/16 History [place]-3 Fatty Acids [Fish Oil] 300 mg PO DAILY 04/26/15 08/16/16 08/16/16 History Pregabalin [Lyrica] 75 mg PO BID #30 capsule 07/13/15 08/16/16 01/11/16 07:00 Rx Docusate Sodium [Colace] 100 mg PO BID 08/16/16 08/16/16 08/16/16 History Duloxetine [Cymbalta] 60 mg PO QAM 08/16/16 08/16/16 08/16/16 History Hydrocodone Bit/Acetaminophen 1.5 each PO QAM 08/16/16 08/16/16 08/16/16 History [Hydrocodon-Acetaminoph 7.5-325] Pantoprazole Sodium [Protonix] 40 mg PO QAM 08/16/16 08/16/16 08/16/16 History Vit C/Vit E/Lutein/Min/[place]-3 1 each PO DAILY 08/16/16 08/16/16 08/16/16 History [Ocuvite Softgel] Metoprolol Succinate E.r. [Toprol 25 mg PO DAILY #30 tablet 08/18/16 Unknown Rx Xl] - History of Present Illness-CP Nature of Presenting Problem: 86 yo F presents to the ER with complaint of CP and rapid heart beat since yesterday. Pt states she feels her heart is beating faster than normal. Denies any other symptoms. (Allan Barajas) 86 yo F presents to the ER with complaint of CP and rapid heart beat since yesterday. Pt states she feels her heart is beating faster than normal. Denies any other symptoms. (Brando Armenta I) Review of Systems - Adult - REVIEW OF SYSTEMS - ADULT Constitutional: denies: chills, fever Cardiovascular: reports: see HPI, chest pain. denies: palpitations Respiratory: denies: cough, shortness of breath Gastrointestinal: denies: abdominal pain, nausea, vomiting All Other Systems: Reviewed and Negative <Brando Armenta I - Last Filed: 09/01/16 17:14> Past History - Adult - PAST MEDICAL HISTORY-ADULT Review of Records: reports: Old Records Reviewed, Nursing Assessment Review, Medications Reviewed Major Childhood Illnesses: reports: denies history Cardiovascular: reports: denies history Respiratory: reports: COPD, sleep apnea, other (pt sleeps with slight O2) Gastrointestinal: reports: GERD, other (enlarged bile duct) Obstetrical/Gynecological: reports: denies history Genitourinary: reports: denies history Musculoskeletal: reports: arthritis, fibromyalgia, other (Stenosis Pondyleosis) Neurological: reports: other (Neuropathy) Psychiatric: reports: denies history Endocrine/Immune: reports: denies history Other Conditions: reports: other (Fibromylagia, Neuropathy, Stenosis Pondyleosis ) - PRIOR SURGERIES/PROCEDURES Surgical/Procedure History: reports: hysterectomy, joint replacement, other - PRIOR HOSPITALIZATIONS Prior Hospitalizations: reports: none - IMMUNIZATION STATUS Childhood Immunizations: See Nurse Assessment Flu Vaccine: UTD - FAMILY HISTORY Family History: reviewed, not pertinent <Brando Armenta I - Last Filed: 09/01/16 17:14> Physical Exam-General - PHYSICAL EXAM-ADULT Initial Vital Signs Reviewed: Yes - CONSTITUTIONAL General Appearance: appears well, alert, no apparent distress - RESPIRATORY Respiratory: chest non-tender, lungs clear - CARDIOVASCULAR Cardiovascular: tachycardia - GASTROINTESTINAL (ABDOMEN) Abdominal Exam: normal bowel sounds, non tender, soft - SKIN Integumentary: normal color, normal turgor, warm/dry <Brando Armenta I - Last Filed: 09/01/16 17:14> Progress - PLAN OF CARE/RESULTS Result Diagrams: 08/16/16 15:30 08/16/16 15:30 <Dhruv Astorga - Last Filed: 08/16/16 19:18> - PLAN OF CARE/RESULTS Result Diagrams: 08/18/16 06:28 08/18/16 06:28 - EKG 1 Time of EKG reading by physician:: 15:40 EKG Read and Signed by:: Brando Armenta EKG Interpretation (*Must complete 3 of following elements*): Abnormal Rate: 108 Rhythm: sinus tachycardia [place]: normal [place] Interval: normal ST Wave: normal Comments: left anterior fascicular block, voltage criteria for left ventricular hyper 2 Time of EKG reading by physician:: 17:36 EKG Read and Signed by:: Brando Armenta EKG Interpretation (*Must complete 3 of following elements*): Abnormal ( pulmonary disease pattern, L anterior fascicular block, voltage criteria for L ventricular hypertrophy) Rate: 102 Rhythm: sinus tachycardia [place]: normal QRS: normal Comments: abnormal ekg - CHANGE OF SHIFT REPORT (ED Provider) Report Given and Care Transferred to:: Dr. Hoffmann Time of Transfer: 18:00 Items Pending: Labs, XRAY Results (Patient is hemodynamically stable. Awaiting labs and imaging) <Brando Armenta I - Last Filed: 09/01/16 17:14> - PLAN OF CARE/RESULTS Progress/Plan/Lab Results: Orders Category Date Time Status Admit - [facility] Routine AdmDCTranf 08/16/16 19:11 Ordered Activity - Bed Rest with BRP ORDERED Care 08/16/16 19:11 Inactive Cardiac Monitoring DIRECTED Care 08/16/16 15:26 Completed Soriano Cath Insertion ORDERED Care 08/16/16 18:42 Completed Resuscitation Status Routine Care 08/16/16 19:11 Ordered Saline Loc DIRECTED Care 08/16/16 19:11 Inactive Saline Loc NOW Care 08/16/16 15:26 Completed Vital Signs Order ROUTINE Care 08/16/16 19:11 Inactive Z-Document. for Tele Applied ORDERED Care 08/16/16 21:54 Completed Heart Healthy Diet Diet 08/16/16 21:51 Completed Heart Healthy Diet Diet 08/17/16 Breakfast Completed CHEST-2 VIEWS [RAD] Stat Exams 08/16/16 15:26 Completed MYOCARDIAL PERF SCAN, STR/REST [NM] Routine Exams 08/17/16 05:00 Completed CBC WITH ELECTRONIC DIFF [HEME] Stat Lab 08/16/16 15:30 Completed CK PROFILE [SP CHEM] Stat Lab 08/16/16 15:30 Completed CK PROFILE [SP CHEM] Stat Lab 08/16/16 17:30 Completed COMPREHENSIVE METABOLIC PANEL [CHEM] Stat Lab 08/16/16 15:30 Completed MAGNESIUM [CHEM] Stat Lab 08/16/16 15:30 Completed PRO B-NATRIURETIC PEPTIDE Stat Lab 08/16/16 15:30 Completed [address]IME WITH INR PL [COAG] Stat Lab 08/16/16 15:[address] [COAG] Stat Lab 08/16/16 15:30 Completed TROPONIN T Stat Lab 08/16/16 15:30 Completed TROPONIN T Stat Lab 08/16/16 17:30 Completed TROPONIN T Timed Lab 08/16/16 19:26 Completed TSH Stat Lab 08/16/16 15:30 Completed URINE CULTURE [RM] Routine Lab 08/16/16 16:58 Completed urinalysis [URINALYSIS PL W/POSS RFLX CULT] [URINALYSIS Lab 08/16/16 16:30 Completed ] Stat 0.9% Sodium Chloride Inj [Ns] 1,000 ml Med 08/16/16 19:11 Discontinued IV 50 mls/hr Allopurinol [Zyloprim] Med 08/17/16 09:00 Discontinued 300 mg PO QAM Cyanocobalamin [Vitamin B-12] Med 08/17/16 09:00 Discontinued 1,000 microgm PO QAM Diltiazem [Cardizem] Med 08/16/16 15:39 Discontinued 10 mg IV NOW ONE Diltiazem [Cardizem] Med 08/16/16 17:08 Discontinued 20 mg IV NOW ONE Diltiazem [Cardizem] Med 08/16/16 17:09 Discontinued 25 mg .ROUTE .STK-MED ONE Docusate Sodium [Colace] Med 08/17/16 09:00 Discontinued 100 mg PO BID Duloxetine [Cymbalta] Med 08/17/16 09:00 Discontinued 60 mg PO QAM Estradiol [Estrace] Med 08/18/16 09:00 Discontinued 1 mg PO EVERY OTHER DAY Fluticasone/Salmet 250/50 INH [Advair 250/50 Diskus] Med 08/16/16 23:11 Discontinued 1 puff INH DAILY PRN PRN Furosemide [Lasix] Med 08/16/16 18:37 Discontinued 20 mg .ROUTE .STK-MED ONE Furosemide [Lasix] Med 08/16/16 18:25 Discontinued 20 mg IV NOW ONE Furosemide [Lasix] Med 08/16/16 19:53 Discontinued 20 mg IV Q12H Hydrocodone/APAP 7.5 mg/325 mg [[place]-7.5] Med 08/17/16 09:00 Discontinued 1.5 each PO QAM Levothyroxine [Synthroid] Med 08/17/16 07:00 Discontinued 112 microgm PO QAM@0700 Metoprolol [Lopressor] Med 08/17/16 14:00 Discontinued 25 mg PO Q6HR Morphine Med 08/16/16 19:11 Discontinued 2 mg IV Q2H PRN PRN [place]-3 Fatty Acids [Fish Oil Concentrate] Med 08/17/16 09:00 Discontinued 1,000 mg PO DAILY Ondansetron [Zofran] Med 08/16/16 19:11 Discontinued 4 mg IV Q4H PRN PRN Pantoprazole [Protonix] Med 08/17/16 09:00 Discontinued 40 mg PO QAM Patient's Own Med Med 08/17/16 09:00 Discontinued 0 each .SEE ORDER PRN PRN Pregabalin [Lyrica] Med 08/16/16 23:15 Discontinued 75 mg PO BID Trazodone [Desyrel] Med 08/16/16 23:17 Discontinued 25 mg PO HS PRN PRN Vit C/E/Zn/Coppr/Lutein/Zeaxan [Ocuvite Lutein & Med 08/17/16 09:00 Discontinued Zeaxanthin] 1 each PO DAILY Telemetry [OM.EQ] Routine Oth 08/16/16 21:54 Active EKG [EKG] Stat Ther 08/16/16 15:26 Draft EKG [EKG] Stat Ther 08/16/16 17:21 Draft EKG, Stress Test [EKG] Routine Ther 08/17/16 Completed Transfer/Admit Order [TRANSFER] Routine Transfer 08/16/16 19:16 Completed Departure - Departure Time of Disposition Decision: 19:00 Certified Medical Emergency: Emergent - Critical Care Note This patient required my direct & personal management of CC.: No <Dhruv Astorga - Last Filed: 08/16/16 19:18> - Departure Date of Disposition Decision: 08/16/16 Time of Disposition Decision: 17:13 Certified Medical Emergency: Emergent - Critical Care Note This patient required my direct & personal management of CC.: No <Brando Armenta I - Last Filed: 09/01/16 17:14> - Departure DIAGNOSIS: Arrhythmia, ventricular, CHF (congestive heart failure), NYHA class II Disposition: ADMITTED INPATIENT 09 Condition: Fair This chart was documented by the indicated scribe, (Allan Barajas Scribe) and accurately reflects the services I performed and decisions made by Kathi millard Christophe I, MD, as attested by the provider's signature.
== END 2016-08-18 14:22 | disposition home health service (06) ==
LOC: P.MEDSURG 15:17 → P.ED 15:17 → P.MEDSURG 19:45
PROVIDERS: ADMIT Internal Medicine; ATTEND Internal Medicine